=== PATIENT | female | born 1990 | race Hispanic/Latino ===

== ENCOUNTER 2022-11-04 16:25 | Emergency (ER) | payer OTHER, SELFPAY ==
[2022-11-04] MEDS ORDERED: TDAP (DIPHTH,PERTUSS(ACELL),TET VAC) 0.5 ML VIAL IMVAC ONE (16:34)
[2022-11-04] MEDS ORDERED: HYDROCODONE/APAP 7.5/325 MG TAB ONE (16:59)
[2022-11-04] MEDS ORDERED: LIDOCAINE 1% MPF 5 ML VIAL ONE (17:43)
[2022-11-04] MEDS ORDERED: BUPIVACAINE 0.5% PF 10 ML VIAL ONE (17:43)
--- NOTE | 2022-11-04 18:50 | ER ---
Nurse's Notes [facility] Name: Lanny Rankin Age: 32 yrs Sex: Female : 1990 Arrival Date: 11/04/2022 Time: 16:27 Bed 12 Private MD: Diagnosis: Laceration without foreign body of right middle finger without damage to nail-avulsion Presentation: 11/04 16:30 Chief complaint: EMS states: Toned out for finger laceration, pt sliced right middle jl7 finger while slicing vegetables. 16:30 Method Of Arrival: EMS: [facility] 7 16:30 Coronavirus screen: At this time, the client does not indicate any symptoms associated jl7 with coronavirus-19. Ebola Screen: No symptoms or risks identified at this time. Initial Sepsis Screen: Does the patient meet any 2 criteria? No. Patient's initial sepsis screen is negative. Does the patient have a suspected source of infection? No. Patient's initial sepsis screen is negative. Risk Assessment: Do you want to hurt yourself or someone else? Patient reports no desire to harm self or others. Onset of symptoms was November 04, 2022. 16:30 Acuity: COLLEEN 4 jl7 Triage Assessment: 17:05 General: Appears in no apparent distress. uncomfortable, Behavior is cooperative, jl7 anxious, crying. Pain: Complains of pain in right middle finger Pain currently is 10 out of 10 on a pain scale. Musculoskeletal: bleeding controlled. Injury Description: Avulsion sustained to right middle finger is partial was sustained 30-60 minutes ago. 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 - Social history:: Smoking status: Patient denies any tobacco usage or history of. Vital Signs: 16:30 BP 142 / 87; Pulse 106; Resp 17; Temp 97.6; Pulse Ox 99% ; Weight 104.33 kg; Height 5 jl7 ft. 5 in. (165.10 cm); Pain 10/10; 19:10 BP 127 / 76; Pulse 90; Resp 15; Temp 97.8; Pulse Ox 99% ; jl7 16:30 Body Mass Index 38.27 (104.33 kg, 165.10 cm) jl7 ED Course: 16:27 Patient arrived in ED. kb 16:27 Mar[facility]avala [facility]C [facility] kb 16:27 Homer Perera MD is Attending Physician. kb 16:36 Barrington Stone RN is Primary Nurse. jl7 17:05 Triage completed. jl7 17:05 Arm band placed on right wrist. jl7 19:11 Patient has correct armband on for positive identification. jl7 19:11 Assist provider with laceration repair on right middle finger that was 2.5 cm. or less jl7 using sutures. Set up tray. Performed by Marlene PINEDO Dressed with 4X4s, Patient tolerated well. Patient did not have IV access during this emergency room visit. Administered Medications: 16:40 Drug: Tetanus-Diphtheria Toxoid Adult 0.5 ml {Musical Instrument Mechanic: [facility] ([employer]). Exp: jl7 04/15/2023. Lot #: [id number]. } Route: IM; Site: left deltoid; 17:02 Drug: [place] (HYDROcodone-acetaminophen) (7.5 mg-325 mg) 1 tabs Route: PO; jl7 18:40 Drug: Lidocaine (1 %) 5 mg {Note: administered by ERP.} Route: Infiltration; jl7 18:40 Drug: Marcaine (bupivacaine) (0.5 %) 1 application {Note: administered by ERP.} Volume: jl7 10 ml; Route: Infiltration; Medication: 19:10 Vaccine Information Statement (VIS) provided today. Questions and/or concerns jl7 addressed. VIS edition date: May 07, 2021. Outcome: 18:50 Discharge ordered by . kb 19:11 Discharged to home ambulatory. jl7 19:11 Condition: stable 19:11 Discharge instructions given to patient, family, Instructed on discharge instructions, follow up and referral plans. Demonstrated understanding of instructions, follow-up care. 19:11 Patient left the ED. jl7 Signatures: Marlene Zavala FNP-C TOOL AND DIE MACHINIST-CkBarrington Turner RN RN jl7 Corrections: (The following items were deleted from the chart) 17:06 17:05 Home Meds: None; jl7 jl7
--- NOTE | 2022-11-04 18:50 | EDPHYS ---
Physician Documentation [facility] Name: Lanny Rankin Age: 32 yrs Sex: Female : 1990 Arrival Date: 11/04/2022 Time: 16:27 Bed 12 Private MD: ED Physician Homer Perera HPI: 11/04 20:11 This 32 yrs old Female presents to ER via EMS with complaints of Finger Injury.kb 20:11 The patient has a laceration related to: cooking, occurred at home, and there are no kb complicating factors. The laceration(s) is(are) located on the palmar aspect of proximal phalanx of right middle finger. Onset: The symptoms/episode began/occurred just prior to arrival. Associated signs and symptoms: Pertinent positives: heavy bleeding, Pertinent negatives: deformity, dizziness, loss of consciousness, numbness distal to injury, suspected foreign body. The patient has not experienced similar symptoms in the past. The patient has not recently seen a physician. Patient reports she was using a slicer to slice cucumbers and accidentally cut the tip of her right middle finger.. 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 - Social history:: Smoking status: Patient denies any tobacco usage or history of. ROS: 20:05 Constitutional: Negative for fever, chills, and weight loss. kb 20:05 Skin: Positive for avulsion, laceration(s), of the palmar aspect of distal phalanx of right middle finger. 20:05 All other systems are negative. Exam: 20:05 Constitutional: This is a well developed, well nourished patient who is awake, alert, kb and in no acute distress. Head/Face: Normocephalic, atraumatic. ENT: Moist Mucous membranes Cardiovascular: Regular rate and rhythm with a normal S1 and S2. No gallops, murmurs, or rubs. No pulse deficits. Respiratory: Respirations even and unlabored. No increased work of breathing. Talking in full sentences MS/ Extremity: Pulses equal, no cyanosis. Neurovascular intact. Full, normal range of motion. Neuro: Awake and alert, GCS 15, oriented to person, place, time, and situation. Moves all extremities. Normal gait. Psych: Awake, alert, with orientation to person, place and time. Behavior, mood, and affect are within normal limits. 20:05 Skin: injury, avulsion(s), A moderate sized of the palmar aspect of distal phalanx of right middle finger. Vital Signs: 16:30 BP 142 / 87; Pulse 106; Resp 17; Temp 97.6; Pulse Ox 99% ; Weight 104.33 kg; Height 5 jl7 ft. 5 in. (165.10 cm); Pain 10/10; 19:10 BP 127 / 76; Pulse 90; Resp 15; Temp 97.8; Pulse Ox 99% ; jl7 16:30 Body Mass Index 38.27 (104.33 kg, 165.10 cm) jl7 Procedures: 20:10 Nerve block: (digital) of palmar aspect of proximal phalanx of right middle finger kb Medication: Lidocaine 1% without epinephrine Marcaine 0.5%, Amount: 5 mls were injected, Effect: the patient has resolution of the pain, Set up for procedure. Performed by aMrlene PINEDO Patient tolerated well. MDM: 16:27 Patient medically screened. kb 20:05 Differential diagnosis: superficial laceration, vascular injury, Avulsion laceration. kb Data reviewed: vital signs, nurses notes. Counseling: I had a detailed discussion with the patient and/or guardian regarding: the historical points, exam findings, and any diagnostic results supporting the discharge/admit diagnosis, the need for outpatient follow up, a family practitioner, to return to the emergency department if symptoms worsen or persist or if there are any questions or concerns that arise at home. ED course: Surgicel and pressure applied to finger. Patient was given [place] for pain that did not improve pain. Digital block performed. Wound undressed, was still bleeding moderately i cleaned it with Hibiclens and inserted 1 [id number] stitch with 5-0 chromic to obtain hemostasis. Dressing applied.. 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 Exp: jl7 04/15/2023. Lot #: [id number]. } Route: IM; Site: left deltoid; 17:02 Drug: [place] (HYDROcodone-acetaminophen) (7.5 mg-325 mg) 1 tabs Route: PO; jl7 18:40 Drug: Lidocaine (1 %) 5 mg {Note: administered by ERP.} Route: Infiltration; jl7 18:40 Drug: Marcaine (bupivacaine) (0.5 %) 1 application {Note: administered by ERP.} Volume: jl7 10 ml; Route: Infiltration; Disposition: 11/05 07:16 Co-signature as Attending Physician, Homer Perera MD I reviewed the patient's care rn provided by the Advanced Practice Provider and agree with the diagnosis and treatment plan. Disposition Summary: 11/04/22 18:50 Discharge Ordered Location: [place] kb Condition: Stable kb Diagnosis - Laceration without foreign body of right middle finger without damage to nail - kb avulsion Followup: kb - With: Emergency Department - When: As needed - Reason: Worsening of condition Followup: kb - With: Private Physician - When: 2 - 3 days - Reason: Recheck today's complaints, Continuance of care, Re-evaluation by your physician Discharge Instructions: - Discharge Summary Sheet kb - Deep Skin Avulsion kb - Laceration Care, Adult, [id number] kb Forms: - Medication Reconciliation Form kb - Thank You Letter kb - Antibiotic Education kb - Prescription Opioid Use kb Signatures: Marlene Zavala, CLIENT DELIVERY MANAGER-C CLIENT DELIVERY MANAGER-Ckb Homer Perera MD MD rn Leal, Jahala, RN RN jl7 Corrections: (The following items were deleted from the chart) 11/04 17:06 17:05 Home Meds: None; jl7 jl7
[2022-11-04 19:20] VITALS: O2SAT 99
[2022-11-04 19:25] VITALS: BP 127/76; TEMP 97.8
== END 2022-11-04 19:11 | disposition home or self-care (01) ==
LOC: ER 16:25
PROC: 0HQFXZZ Repair Right Hand Skin, External Approach (ICD-10-PCS; principal; 2022-11-04)
DX: S61.312A Laceration without foreign body of right middle finger with damage to nail, initial encounter (principal); Z23 Encounter for immunization
CPT/HCPCS: 64450; 90471; 99283; J2001

== ENCOUNTER 2022-11-05 08:40 | Emergency (ER) | payer SELFPAY ==
--- NOTE | 2022-11-05 09:16 | ER ---
Nurse's Notes [facility] Name: Lanny Rankin Age: 32 yrs Sex: Female : 1990 Arrival Date: 11/05/2022 Time: 08:41 Bed 8 Private MD: Diagnosis: abrasion of the right 3rd phalanx Presentation: 11/05 08:55 Ebola Screen: Patient denies travel to an Ebola-affected area in the 21 days before ll1 illness onset. Risk Assessment: Do you want to hurt yourself or someone else? Patient reports no desire to harm self or others. Onset of symptoms was November 05, 2022. 08:55 Acuity: COLLEEN 4 ll1 08:55 Method Of Arrival: Ambulatory 1 09:18 Chief complaint: Patient states: R hand suture site bleeding. Here for recheck. ll1 Coronavirus screen: Client denies travel out of the [place] in the last 14 days. At this time, the client does not indicate any symptoms associated with coronavirus-19. Initial Sepsis Screen: Does the patient meet any 2 criteria? No. Patient's initial sepsis screen is negative. Does the patient have a suspected source of infection? Yes: Skin breakdown/wound. Historical: - PMHx: 08:54 depressive disorder; Anxiety; ll1 - Immunization history:: Adult Immunizations up to date. - Social history:: Smoking status: Patient denies any tobacco usage or history of. Screenin:18 Abuse screen: Denies threats or abuse. Nutritional screening: No deficits noted. ll1 Tuberculosis screening: No symptoms or risk factors identified. Assessment: 09:05 General: Appears in no apparent distress. Behavior is calm, cooperative, appropriate ll1 for age. Pain: Complains of pain in right hand and palmar aspect of distal phalanx of right middle finger Quality of pain is described as aching. Derm: Wound noted palmar aspect of distal phalanx of right middle finger Wound is s/p 1 suture last night Reports pain. Musculoskeletal: Circulation, motion, and sensation intact. Capillary refill < 3 seconds. Vital Signs: 09:25 BP 148 / 63; Pulse 79; Resp 16; Temp 98.0; Pulse Ox 100% on R/A; iw ED Course: 08:41 Patient arrived in ED. as 08:42 Francis Quintana PA is PHCP. [facility] 08:42 Homer Perera MD is Attending Physician. [facility] 08:50 Garrett Hurtado, RN is Primary Nurse. 1 08:50 Arm band placed on Patient placed in an exam room, on a stretcher. ll1 08:55 Triage completed. ll1 09:06 Wound care: to laceration located on palmar aspect of distal phalanx of right middle ll1 finger was cleaned with with saline, dressed with surgicel applied, wrapped with folded 4x4. Secured with coban wrap, Patient tolerated well. 09:25 No provider procedures requiring assistance completed. Patient did not have IV access iw during this emergency room visit. Administered Medications: No medications were administered Medication: 09:25 VIS not applicable for this client. iw Outcome: 09:15 Discharge ordered by . [facility] 09:24 Discharged to home ambulatory. iw 09:24 Condition: good 09:24 Discharge instructions given to patient, family, Instructed on discharge instructions, follow up and referral plans. wound care. 09:24 No charge visit due to suture removal. 09:26 Patient left the ED. iw Signatures: Francis Quintana PA PA Celia Everett as Mariam Rangel RN RN Garrett Hurtado, RN RN [facility] Corrections: (The following items were deleted from the chart) 09:21 09:06 Wound care: to laceration located on palmar aspect of distal phalanx of right ll1 middle finger was cleaned with with saline, dressed with surgicel applied, wrapped with folded 4x4. Secured with coban wrap, 1
--- NOTE | 2022-11-05 09:16 | EDPHYS ---
Physician Documentation [facility] Name: Lanny Rankin Age: 32 yrs Sex: Female : 1990 Arrival Date: 11/05/2022 Time: 08:41 Bed 8 Private MD: ED Physician Homer Perera HPI: 11/05 08:54 This 32 yrs old Female presents to ER via Ambulatory with complaints of Suture jmm Recheck. 08:54 The affected area is on the palmar aspect of distal phalanx of right middle finger. jmm This is a 32 year old female with history of depression that presents the ED with complaints of ongoing bleeding to an injury to her right 3rd finger. Repaired yesterday. Patient was given a tetanus immunization. . Historical: - PMHx: 08:54 depressive disorder; Anxiety; ll1 - Immunization history:: Adult Immunizations up to date. - Social history:: Smoking status: Patient denies any tobacco usage or history of. ROS: 08:54 Constitutional: Negative for fever, chills, and weight loss, Cardiovascular: Negative jmm for chest pain, palpitations, and edema, Respiratory: Negative for shortness of breath, cough, wheezing, and pleuritic chest pain. 08:54 Skin: Positive for bleeding. 08:54 All other systems are negative. Exam: 08:54 Constitutional: This is a well developed, well nourished patient who is awake, alert, jmm and in no acute distress. Head/Face: atraumatic. Eyes: EOMI, no conjunctival erythema appreciated ENT: Moist Mucus Membranes Neck: Trachea midline, Supple Chest/axilla: Normal chest wall appearance and motion. Cardiovascular: Regular rate and rhythm. No edema appreciated Respiratory: Normal respirations, no respiratory distress appreciated Abdomen/GI: Non distended Back: Normal ROM 08:54 Skin: abrasion notd to the right 3rd distal phalanx without active bleeding. . 08:54 Neuro: Orientation: is normal, Mentation: is normal, Memory: is normal. 08:54 Psych: Behavior/mood is pleasant, cooperative. Vital Signs: 09:25 BP 148 / 63; Pulse 79; Resp 16; Temp 98.0; Pulse Ox 100% on R/A; iw MDM: 08:54 Patient medically screened. [facility] 09:13 Data reviewed: vital signs, nurses notes. Historians other than the Patient: alexis Spouse/Significant Other: significant other. Counseling: I had a detailed discussion with the patient and/or guardian regarding: the historical points, exam findings, and any diagnostic results supporting the discharge/admit diagnosis, the need for outpatient follow up, to return to the emergency department if symptoms worsen or persist or if there are any questions or concerns that arise at home. ED course: wound was rewraped using surgicele. patient was otherwise given strict return precautions. patient understood and agrees with the plan of care. . 11/05 08:57 Order name: Wound Care; Complete Time: 09:07 haider Administered Medications: No medications were administered Disposition: 10:17 Co-signature as Attending Physician, Homer Perera MD I reviewed the patient's care rn provided by the Advanced Practice Provider and agree with the diagnosis and treatment plan. Disposition Summary: 11/05/22 09:15 Discharge Ordered Location: Home [facility] Condition: Stable jm Diagnosis - abrasion of the right 3rd phalanx [facility] Followup: jm - With: Private Physician - When: 2 - 3 days - Reason: Recheck today's complaints, Continuance of care, Re-evaluation by your physician Discharge Instructions: - Discharge Summary Sheet jm - Wound Care, Adult jm Forms: - Medication Reconciliation Form [facility] - Thank You Letter [facility] - Antibiotic Education [facility] - Prescription Opioid Use [facility] Signatures: Francis Quintana PA PA jmm Nieto, Roman, MD MD rn Garrett Hurtado RN RN ll1
[2022-11-05 09:30] VITALS: BP 148/63; TEMP 98; O2SAT 100
== END 2022-11-05 09:26 | disposition home or self-care (01) ==
LOC: ER 08:40
DX: S60.412A Abrasion of right middle finger, initial encounter (principal)

== ENCOUNTER 2024-09-16 15:37 | Emergency (ER) | payer OTHER ==
--- OUTSIDE RECORDS SUMMARY | 2024-09-16 15:39 | XMS REPORT | Continuity of Care Document ---
Author Name Unknown Address [address] [place] [address] [employer] Address [address] [place] [address] [address] [place] [address] Care Team Providers Care Rn Faculty Name Role Phone [email or web address] Attending Clinician Unavaila ble [email or web address] Admitting Clinician Unavaila ble Encounters Start Date/Time End Date/Time Encounter Type Admission Type Attending Clinicians Care Facility Care Department Encounter ID Source 2023-08-02 00:00:00 2023-08-02 00:00:00 Outpatient [email or web address] [id number] [facility]
[2024-09-16] MEDS ORDERED: ONDANSETRON 4 MG/2 ML VIAL ONE (16:11)
[2024-09-16] MEDS ORDERED: BISACODYL 10 MG RECTAL SUPP ONE (16:11)
[2024-09-16] MEDS ORDERED: NA CHLORIDE 0.9% 1,000 ML ONE (16:11)
[2024-09-16] MEDS ORDERED: LACTULOSE 20 GM/30 ML UCUP ONE (16:12)
[2024-09-16 16:24] LABS: Absolute Basophils 0.1 K/uL (0-0.5); Absolute Lymphocytes (CBC) 1.4 K/uL (0.7-4.9); Absolute Monocytes 0.7 K/uL (0.1-1.3); Basophils % 0.4 % (0-1.3); Eosinophils % 0.1 % (0-4.4); Hematocrit 41.6 % (36.0-45.0); Hemoglobin 14.1 g/dL (12.0-15.0); Lymphocytes % 10.5 % (15.3-44.8); MCH 29.1 pg (27.0-35.0); MCHC 33.9 g/dL (32.0-36.0); MCV 85.9 fL (80-100); MPV 7.2 fL (7.6-11.3); Platelets 318 thou/uL (152-406); RBC Red Blood Cell Count 4.84 M/uL (3.86-4.86); Red Cell Distribution Width 13.6 % (12.1-15.2)
[2024-09-16 16:36] LABS: Specific Gravity 1.005 (1.005-1.030); Urine Bilirubin NEGATIVE (Negative); Urine Blood Negative (Negative); Urine Clarity Clear (Clear); Urine Color Colorless (Yellow); Urine Glucose NEGATIVE (Negative); Urine Ketones TRACE (Negative); Urine Microscopic Reflex YN NO UMIC; Urine Nitrite NEGATIVE (Negative); Urine Protein NEGATIVE (Negative); Urine Urobilinogen Normal (Normal)
[2024-09-16 16:37] LABS: Specific Gravity 1.005 (1.005-1.030)
[2024-09-16 16:39] LABS: Albumin 4.3 g/dL (3.4-5.0); Bilirubin Total 0.4 mg/dL (0.2-1.0); Globulin 4.1 g/dL (2.3-3.5); Protein, Total 8.4 g/dL (6.4-8.2)
[2024-09-16] MEDS ORDERED: NA CHLORIDE 0.9% 500 ML ONE (18:28)
--- NOTE | 2024-09-16 18:30 | RAD REPORT ---
EXAMINATION: CT Abdomen Pelvis W Contrast CLINICAL INDICATION: Female, 33 years old. Abd pain;Constipation TECHNIQUE: CT abdomen and pelvis was performed, after the administration of IV contrast, as per [facility] protocol. Axial, sagittal and coronal reconstructions were obtained. One or more of the following dose reduction techniques were used: Automated exposure control, adjustment of the mA and k V according to patient size, and iterative reconstruction. Unless otherwise specified, incidental findings do not require dedicated imaging follow-up. COMPARISON: No prior exam. FINDINGS: LOWER CHEST: The visualized lung bases are clear. LIVER: Normal in size and contour. No focal lesion. BILIARY SYSTEM: No suspicious abnormalities. SPLEEN: Normal size. No focal lesion. PANCREAS: No mass, ductal dilation, or vaughn-pancreatic fluid. ADRENALS: Normal; no mass. KIDNEYS: Normal size and contour. No hydronephrosis. URINARY BLADDER: Unremarkable. GASTROINTESTINAL TRACT: No evidence of free air, significant intra-abdominal free fluid, bowel obstru ction or abscess. No significant colonic stool burden APPENDIX: Normal appendix. LYMPH NODES: No lymphadenopathy. MUSCULOSKELETAL: No acute or suspicious osseous abnormality. ADDITIONAL FINDINGS: Retroverted uterus. IMPRESSION: No acute or concerning abnormalities seen in the abdomen or pelvis.
--- NOTE | 2024-09-16 18:34 | EDPHYS ---
Physician Documentation [facility] Name: Lanny Rankin Age: 33 yrs Sex: Female : 1990 Arrival Date: 09/16/2024 Time: 15:37 Bed 26 Private MD: ED Physician Mateus Piedra HPI: 09/16 17:42 This 33 yrs old Female presents to ER via Ambulatory with complaints of chikis Nausea, Constipation. 17:42 The patient presents to the emergency department with nausea, that is moderate, chikis abdominal pain, of the right upper quadrant, left upper quadrant and left lower quadrant. Onset: The symptoms/episode began/occurred 3 day(s) ago. Possible causes: GB, CONSTIPATION. The symptoms are aggravated by movement, The symptoms are alleviated by nothing. Associated signs and symptoms: Pertinent positives: abdominal pain, constipation, nausea. Severity of symptoms: At their worst the symptoms were moderate in the emergency department the symptoms are unchanged. The patient has experienced similar episodes in the past, multiple times. Historical: - Allergies: 15:51 No Known Allergies; cm10 - PMHx: 15:51 Anxiety; depressive disorder; cm10 - Immunization history:: Adult Immunizations up to date. - Infectious Disease History:: Denies. - Social history:: Smoking status: Patient denies any tobacco usage or history of. ROS: 17:45 Constitutional: Negative for fever, chills, and weight loss, Eyes: Negative for injury, chikis pain, redness, and discharge, ENT: Negative for injury, pain, and discharge, Neck: Negative for injury, pain, and swelling, Cardiovascular: Negative for chest pain, palpitations, and edema, Respiratory: Negative for shortness of breath, cough, wheezing, and pleuritic chest pain, Back: Negative for injury and pain, : Negative for injury, bleeding, discharge, and swelling, MS/Extremity: Negative for injury and deformity, Skin: Negative for injury, rash, and discoloration, Neuro: Negative for headache, weakness, numbness, tingling, and seizure, Psych: Negative for depression, anxiety, suicide ideation, homicidal ideation, and hallucinations, Allergy/Immunology: Negative for hives, rash, and allergies, Endocrine: Negative for neck swelling, polydipsia, polyuria, polyphagia, and marked weight changes, Hematologic/Lymphatic: Negative for swollen nodes, abnormal bleeding, and unusual bruising, 17:45 Abdomen/GI: Positive for abdominal pain, nausea, constipation, abdominal cramps, of the right upper quadrant, left upper quadrant and right lower quadrant, Exam: 17:45 Constitutional: This is a well developed, well nourished patient who is awake, alert, chikis and in no acute distress. Head/Face: Normocephalic, atraumatic. Eyes: Pupils equal round and reactive to light, extra-ocular motions intact. Lids and lashes normal. Conjunctiva and sclera are non-icteric and not injected. Cornea within normal limits. Periorbital areas with no swelling, redness, or edema. ENT: Nares patent. No nasal discharge, no septal abnormalities noted. Tympanic membranes are normal and external auditory canals are clear. Oropharynx with no redness, swelling, or masses, exudates, or evidence of obstruction, uvula midline. Mucous membranes moist. Neck: Trachea midline, no thyromegaly or masses palpated, and no cervical lymphadenopathy. Supple, full range of motion without nuchal rigidity, or vertebral point tenderness. No Meningismus. Chest/axilla: Normal chest wall appearance and motion. Nontender with no deformity. No lesions are appreciated. Respiratory: Lungs have equal breath sounds bilaterally, clear to auscultation and percussion. No rales, rhonchi or wheezes noted. No increased work of breathing, no retractions or nasal flaring. Back: No spinal tenderness. No costovertebral tenderness. Full range of motion. Skin: Warm, dry with normal turgor. Normal color with no rashes, no lesions, and no evidence of cellulitis. MS/ Extremity: Pulses equal, no cyanosis. Neurovascular intact. Full, normal range of motion., bilateral aka Neuro: Awake and alert, GCS 15, oriented to person, place, time, and situation. Cranial nerves II-XII grossly intact. Motor strength 5/5 in all extremities. Sensory grossly intact. Cerebellar exam normal. Normal gait. Psych: Awake, alert, with orientation to person, place and time. Behavior, mood, and affect are within normal limits. 17:45 Cardiovascular: Rate: tachycardic, Rhythm: regular, Pulses: Pulses are 4+ in bilateral radial, brachial, femoral, popliteal, posterior tibial and and dorsalis pedis arteries.. Heart sounds: normal, Edema: is not appreciated, JVD: is not appreciated, 17:45 Abdomen/GI: Inspection: distension, that is mild, Bowel sounds: normal, Palpation: mild abdominal tenderness, moderate abdominal tenderness, in the right upper quadrant, left upper quadrant and left lower quadrant, Liver: tenderness, that is mild, Hernia: not appreciated, Vital Signs: 15:49 BP 155 / 110; Pulse 137; Resp 19; Temp 96.9(TE); Pulse Ox 100% on R/A; Weight 88.9 kg; cm10 Height 5 ft. 5 in. ; Pain 6/10; 18:17 BP 142 / 89; Pulse 89; Resp 16; Pulse Ox 100% on R/A; jb4 15:49 Body Mass Index 32.62 (88.90 kg, 165.1 cm) cm10 15:49 Pain Scale: Adult cm10 MDM: 15:40 Medical Screening Exam initiated chikis 17:48 Differential diagnosis: Nonspecific abd pain, gastritis, cholecystitis, pancreatitis, chikis appendicitis, diverticulitis, viral gastroenteritis, gastroenteritis, appendicitis, bowel obstruction, cholecystitis, Cholelithiasis, diverticulitis, gastritis, non-specific abd pain, pancreatitis. Data reviewed: vital signs, nurses notes, lab test result(s), EKG, radiologic studies, CT scan, ultrasound. Consideration of Admission/Observation Escalation of care including admission/observation considered. I considered the following discharge prescriptions or medication management in the emergency department Medications were administered in the Emergency Department. See MAR. Independent interpretation of the following test(s) in the Emergency Department CT Scan: My interpretation is CT ABD /PELVIS. Test considered but Not performed: MRI: NO MRCP. Historians other than the Patient: Spouse/Significant Other: WELL INFORMED. Care significantly affected by the following chronic conditions: Obesity, ANXIETY, DEPRESSION. Counseling: I had a detailed discussion with the patient and/or guardian regarding the historical points, exam findings, and any diagnostic results supporting the discharge/admit diagnosis, the presence of at least one elevated blood pressure reading (>120/80) during this emergency department visit, radiology results. 09/16 15:41 Order name: CBC with Diff; Complete Time: 17:40 [facility] 09/16 15:41 Order name: CMP; Complete Time: 17:40 [facility] 09/16 15:41 Order name: Lipase; Complete Time: 17:40 [facility] 09/16 15:41 Order name: Test, Urine; Complete Time: 17:40 [facility] 09/16 15:41 Order name: Urinalysis w/ reflexes; Complete Time: 17:40 [facility] 09/16 15:41 Order name: CT Abd/Pelvis - PO and IV Contrast; Complete Time: 18:32 [facility] 09/16 17:40 Order name: US Abdomen Limited; Complete Time: 19:26 [facility] 09/16 15:41 Order name: IV Saline Lock; Complete Time: 16:31 [facility] 09/16 15:41 Order name: Labs collected and sent; Complete Time: 16:31 [facility] Administered Medications: 16:15 Drug: Dulcolax AZ Suppository 10 mg AZ once Route: AZ; jb4 18:32 Follow up: Response: No adverse reaction; Marked relief of symptoms jb4 16:30 Drug: Lactulose PO 30 grams 45 ml PO once Volume: 45 ml; Route: PO; jb4 18:32 Follow up: Response: No adverse reaction; Marked relief of symptoms jb4 16:31 Drug: Ondansetron IVP 4 mg IVP once; over 2 minutes Route: IVP; Site: right antecubital;jb4 16:31 Drug: NS 0.9% IV 1000 ml IV at 1 bolus Per protocol; to be given as a bolus over 60 jb4 minutes Route: IV; Rate: 1 bolus; Site: right antecubital; 18:31 Not Given (Other Intervention Used): ns 0.9% 1000 ml IV at 1000 ml once; to be given as jb4 a bolus over 60 minutes 18:34 Drug: NS 0.9% IV 500 ml IV at bolus once; to be given as a bolus over 30 minutes Route: jb4 IV; Rate: bolus; Site: right antecubital; 19:02 Not Given (Physician Discretion): ns 0.9% 1000 ml IV at 125 ml once jb4 Disposition Summary: 09/16/24 18:34 Discharge Ordered Notes: Location: Home chikis Problem: new chikis Symptoms: have improved chikis Condition: Stable chikis Diagnosis - Nausea chikis - Constipation chikis - Abdominal pain, Generalized chikis - Elevated white blood cell count chikis Followup: chikis - With: Private Physician - When: 2 - 3 days - Reason: Recheck today's complaints, Continuance of care, Re-evaluation by your physician Followup: chikis - With: Rena Barclay MD - When: 2 - 3 days - Reason: Recheck today's complaints, Re-evaluation by your physician Discharge Instructions: - Discharge Summary Sheet chikis - Abdominal Pain, Adult chikis - Constipation, Adult chikis - Nausea, Adult chikis - Constipation, Adult, Isap-[id number] chikis - Abdominal Pain, Adult, Dlva-kc-[id number] chikis Forms: - Medication Reconciliation Form chikis - Antibiotic Education chikis - Prescription Opioid Use chikis - Patient Portal Instructions [facility] - Leadership Thank You Letter [facility] Prescriptions: - Dulcolax (bisacodyl) 10 mg Rectal suppository - insert 1 suppository RECTAL route daily as needed for constipation; 10 chikis suppository; Refills: 0, Product Selection Permitted - ondansetron 4 mg Oral Tablet,disintegrating - take 1 tablet ORAL route every 6-8 hours for 5 days; 20 tablet; Refills: 0, [facility] Product Selection Permitted - Cipro 250 mg Oral tablet - take 1 tablet ORAL route every 12 hours; 10 tablet; Refills: 0, Product [facility] Selection Permitted - dicyclomine 20 mg Oral tablet - take 1 tablet ORAL route 4 times per day; 28 tablet; Refills: 0, Product [facility] Selection Permitted Signatures: Dispatcher [employer] Mateus Long MD MD cha Bryson, James, RN RN jb4 Patricia Berry RN RN cm10
--- NOTE | 2024-09-16 18:34 | ER ---
Nurse's Notes [facility] Name: Lanny Rankin Age: 33 yrs Sex: Female : 1990 Arrival Date: 09/16/2024 Time: 15:37 Bed 26 Private MD: Diagnosis: Nausea;Constipation;Abdominal pain, Generalized;Elevated white blood cell count Presentation: 09/16 15:49 Chief complaint: Patient states: CONSTIPATION ONSET TODAY. PT STATES THAT SHE WAS SEEN cm10 AT [place] AND WAS TOLD THAT SHE NEEDED TO COME TO THE HOSPITAL "TO GET SOME RELIEF". Coronavirus screen: Client denies travel out of the [place] in the last 14 days. Ebola Screen: Patient denies travel to an Ebola-affected area in the 21 days before illness onset. No symptoms or risks identified at this time. Initial Sepsis Screen: Does the patient meet any 2 criteria? HR > 90 bpm. Does the patient have a suspected source of infection? No. Patient's initial sepsis screen is negative. Risk Assessment: Do you want to hurt yourself or someone else? Patient reports no desire to harm self or others. Onset of symptoms was September 16, 2024. 15:49 Method Of Arrival: Ambulatory cm10 15:49 Acuity: COLLEEN 3 cm10 Triage Assessment: 15:51 General: Appears uncomfortable, Behavior is anxious, crying. Neuro: No deficits noted. cm10 Level of Consciousness is awake, alert, obeys commands, Oriented to person, place, time, situation, Appropriate for age. Historical: - Allergies: 15:51 No Known Allergies; cm10 - PMHx: 15:51 Anxiety; depressive disorder; cm10 - Immunization history:: Adult Immunizations up to date. - Infectious Disease History:: Denies. - Social history:: Smoking status: Patient denies any tobacco usage or history of. Screenin:30 [facility] ED Fall Risk Assessment (Adult) History of falling in the last 3 months, jb4 including since admission No falls in past 3 months (0 pts) Confusion or Disorientation No (0 pts) Intoxicated or Sedated No (0 pts) Impaired Gait No (0 pts) Mobility Assist Device Used No (0 pt) Altered Elimination No (0 pt) Score/Fall Risk Level 0 - 2 = Low Risk Oriented to surroundings, Maintained a safe environment. Abuse screen: Denies threats or abuse. Nutritional screening: No deficits noted. Tuberculosis screening: No symptoms or risk factors identified. Assessment: 16:32 Reassessment: Patient appears in no apparent distress at this time. Patient and/or jb4 family updated on plan of care and expected duration. Pain level reassessed. Patient is alert, oriented x 3, equal unlabored respirations, skin warm/dry/pink. 18:17 Reassessment: Patient appears in no apparent distress at this time. Patient and/or jb4 family updated on plan of care and expected duration. Pain level reassessed. Patient is alert, oriented x 3, equal unlabored respirations, skin warm/dry/pink. 19:30 Reassessment: Patient appears in no apparent distress at this time. Patient and/or jb4 family updated on plan of care and expected duration. Pain level reassessed. Patient is alert, oriented x 3, equal unlabored respirations, skin warm/dry/pink. Vital Signs: 15:49 BP 155 / 110; Pulse 137; Resp 19; Temp 96.9(TE); Pulse Ox 100% on R/A; Weight 88.9 kg; cm10 Height 5 ft. 5 in. ; Pain 6/10; 18:17 BP 142 / 89; Pulse 89; Resp 16; Pulse Ox 100% on R/A; jb4 15:49 Body Mass Index 32.62 (88.90 kg, 165.1 cm) cm10 15:49 Pain Scale: Adult cm10 ED Course: 15:39 Patient arrived in ED. im 15:40 Mateus Piedra MD is Attending Physician. chikis 15:51 Triage completed. cm10 15:51 Arm band placed on right wrist. Patient placed in an exam room, on a stretcher. cm10 16:22 Initial lab(s) drawn, by al, sent to lab. Inserted saline lock: 20 gauge in right kb4 antecubital area, using aseptic technique. Blood collected. Flushed with 10 mL NS. 16:22 Urine collected: clean catch specimen, clear. kb4 16:31 Urinalysis w/ reflexes Sent. jb4 16:31 Test, Urine Sent. jb4 16:31 CMP Sent. jb4 18:04 CT Abd/Pelvis - PO and IV Contrast In Process Unspecified. EDMS 18:30 US Abdomen Limited In Process Unspecified. EDMS 18:33 Meah, Nizam, MD is Referral Physician. [facility] 19:30 Patient has correct armband on for positive identification. Bed in low position. Call jb4 light in reach. Side rails up X 1. Provided Education on: discharge instructions.. 19:30 No provider procedures requiring assistance completed. IV discontinued, intact, jb4 bleeding controlled, No redness/swelling at site. Pressure dressing applied. Administered Medications: 16:15 Drug: Dulcolax IL Suppository 10 mg IL once Route: IL; jb4 18:32 Follow up: Response: No adverse reaction; Marked relief of symptoms jb4 16:30 Drug: Lactulose PO 30 grams 45 ml PO once Volume: 45 ml; Route: PO; jb4 18:32 Follow up: Response: No adverse reaction; Marked relief of symptoms jb4 16:31 Drug: Ondansetron IVP 4 mg IVP once; over 2 minutes Route: IVP; Site: right antecubital;jb4 16:31 Drug: NS 0.9% IV 1000 ml IV at 1 bolus Per protocol; to be given as a bolus over 60 jb4 minutes Route: IV; Rate: 1 bolus; Site: right antecubital; 18:31 Not Given (Other Intervention Used): ns 0.9% 1000 ml IV at 1000 ml once; to be given as jb4 a bolus over 60 minutes 18:34 Drug: NS 0.9% IV 500 ml IV at bolus once; to be given as a bolus over 30 minutes Route: jb4 IV; Rate: bolus; Site: right antecubital; 19:02 Not Given (Physician Discretion): ns 0.9% 1000 ml IV at 125 ml once jb4 Medication: 19:30 VIS not applicable for this client. jb4 Outcome: 18:34 Discharge ordered by . [facility] 19:30 Discharged to home ambulatory, jb4 19:30 Condition: stable 19:30 Discharge instructions given to patient, Instructed on discharge instructions, follow up and referral plans. medication usage, Demonstrated understanding of instructions, follow-up care, medications, Prescriptions given X 4, 19:31 Patient left the ED. jb4 Signatures: Dispatcher [employer] EDMS Mateus Piedra MD MD cha Bryson, James, RN RN jb4 She Malave Clarissa, RN RN cm10 Susan Dickerson 4
--- NOTE | 2024-09-16 18:50 | RAD REPORT ---
EXAMINATION: US Abdomen Exam Limited CLINICAL HISTORY: [facility] MAIN Y ABD PAIN Bed Name: 26 COMPARISON: None. TECHNIQUE: Limited upper abdominal grayscale and color flow sonographic images. FINDINGS: Gallbladder: Normal. No evidence of gallstones or positive sonographic Leos sign. Bile ducts: No intrahepatic or extrahepatic biliary dilatation. Common bile duct measures 4 mm. Liver: Visualized portions of the liver demonstrate normal echogenicity with no suspicious findings. Fluid: No ascites. IMPRESSION: No abnormalities on right upper quadrant ultrasound.
[2024-09-16 20:11] VITALS: O2SAT 100
[2024-09-16 20:13] VITALS: BP 155/110; TEMP 96.9
== END 2024-09-16 19:31 | disposition home or self-care (01) ==
LOC: ER 15:37
DX: K59.00 Constipation, unspecified (principal); R10.84 Generalized abdominal pain; D72.829 Elevated white blood cell count, unspecified
CPT/HCPCS: 85025; 36415; 81025; 81003; 83690; 80053; 74177; 76705; 96374; 99284; Q9967; J2405; J7040; J7030

== ENCOUNTER 2024-10-27 01:37 | Emergency (ER) | payer OTHER ==
--- OUTSIDE RECORDS SUMMARY | 2024-10-27 01:39 | XMS REPORT | Continuity of Care Document ---
Author Name Unknown Address [address] [place] [address] [employer] Address [address] [place] [address] Care Team Providers Care Safety Tech Name Role Phone [email or web address] Attending Clinician Unavaila ble [email or web address] Admitting Clinician Unavaila ble Encounters Start Date/Time End Date/Time Encounter Type Admission Type Attending Clinicians Care Facility Care Department Encounter ID Source 2023-08-02 00:00:00 2023-08-02 00:00:00 Outpatient [email or web address] [facility] [id number] [facility]
[2024-10-27] MEDS ORDERED: LABETALOL 20 MG/4ML SYRINGE IV ONE (02:03)
[2024-10-27] MEDS ORDERED: NA CHLORIDE 0.9% 1,000 ML ONE (02:03)
[2024-10-27 02:25] LABS: Absolute Basophils 0.1 K/uL (0-0.5); Absolute Eosinophils 0.2 K/uL (0-0.5); Absolute Lymphocytes (CBC) 4.5 K/uL (0.7-4.9); Absolute Monocytes 0.6 K/uL (0.1-1.3); Absolute Neutrophil 4.6 K/uL (1.8-8.0); Basophils % 0.7 % (0-1.3); Eosinophils % 1.5 % (0-4.4); Hematocrit 38.4 % (36.0-45.0); Hemoglobin 13.4 g/dL (12.0-15.0); Lymphocytes % 45.1 % (15.3-44.8); MCH 29.2 pg (27.0-35.0); MCHC 34.7 g/dL (32.0-36.0); MPV 7.9 fL (7.6-11.3); Monocytes % 6.3 % (3.3-12.3); Neutrophils % 46.4 % (41.7-73.7); Platelets 310 thou/uL (152-406); RBC Red Blood Cell Count 4.58 M/uL (3.86-4.86); Red Cell Distribution Width 13.3 % (12.1-15.2)
[2024-10-27 02:39] LABS: D-Dimer 0.878 FEUug/mL (0-0.500); PT Prothrombin Time 11.6 SECONDS (9.4-12.5); Protime INR 1.11
[2024-10-27 02:50] LABS: ALT/SGPT 24 U/L (13-56); AST/SGOT 20 U/L (15-37); Albumin 3.7 g/dL (3.4-5.0); Albumin/Globulin Ratio 0.9 (1.1-1.8); Alkaline Phosphatase 95 U/L (45-117); Anion Gap 12.1 mEq/L (5.0-15.0); BUN Blood Urea Nitrogen 12 mg/dL (7-18); Bicarbonate 24 mEq/L (21-32); Bilirubin Total 0.2 mg/dL (0.2-1.0); Globulin 3.9 g/dL (2.3-3.5); Glomerular Filtration Rate 88 ml/min (=/>90); Glucose Level 135 mg/dL (74-106); Magnesium 2.1 mg/dL (1.6-2.4); NT PRO-BNP 31 pg/mL (<125); Potassium 3.1 mEq/L (3.5-5.1); Protein, Total 7.6 g/dL (6.4-8.2); Sodium Level 139 mEq/L (136-145)
[2024-10-27 02:57] LABS: Bilirubin Direct < 0.2 mg/dL (0-0.2); Troponin High Sensitivity < 3.0 pg/mL (<58.9)
[2024-10-27 03:00] LABS: T3 Free 2.73 pg/mL (2.18-3.98)
[2024-10-27 03:01] LABS: Thyroid Stimulating Hormone 3.81 uIU/mL (0.358-3.740)
[2024-10-27 03:12] LABS: Specific Gravity 1.013 (1.005-1.030); Sqamous Epithelial <5 /HPF (None Seen); Urine Bacteria None Seen /HPF (<20); Urine Bilirubin NEGATIVE (Negative); Urine Blood Negative (Negative); Urine Clarity Turbid (Clear); Urine Color Colorless (Yellow); Urine Culture Reflex Order NOT NEEDED; Urine Glucose NEGATIVE (Negative); Urine Ketones NEGATIVE (Negative); Urine Micro Reflex YN NO BILL MICROSCOPIC; Urine Nitrite NEGATIVE (Negative); Urine Protein NEGATIVE (Negative); Urine RBC <5 /HPF (None Seen); Urine Urobilinogen Normal (Normal); Urine WBC <5 /HPF (<5)
[2024-10-27 03:13] LABS: Specific Gravity 1.013 (1.005-1.030)
[2024-10-27 03:28] LABS: Barbiturates NEGATIVE (NEGATIVE); Benzodiazepines NEGATIVE (NEGATIVE); Cocaine NEGATIVE (NEGATIVE); METHAMPHETAM NEGATIVE (NEGATIVE); Methadone NEGATIVE (NEGATIVE); Opiates NEGATIVE (NEGATIVE); Phencyclidine NEGATIVE (NEGATIVE); THC Cannibis NEGATIVE (NEGATIVE)
[2024-10-27] MEDS ORDERED: DIAZEPAM 10 MG/2 ML INJ SYRINGE ONE (03:37)
--- NOTE | 2024-10-27 03:48 | RAD REPORT ---
EXAM: XR Chest, 1 View CLINICAL HISTORY: The patient is 34 years old and is Female; PALPITATIONS TECHNIQUE: Frontal view of the chest. COMPARISON: No relevant prior studies available. FINDINGS: Lungs: Unremarkable. No consolidation. Pleural space: Unremarkable. No pneumothorax. Heart: Unremarkable. Mediastinum: Unremarkable. Normal mediastinal contour. Bones/joints: No acute findings. IMPRESSION: No acute findings in the chest. Electronically signed by: Roberto Carlos Pastor MD 10/27/2024 03:11 AM [facility] 8 Due to temporary technical issues with the PACS/[employer] reporting system, reports are being jordi d by the in-house radiologist without review as a courtesy to ensure prompt reporting the interpreting radiologist is fully responsible for the content of the report. Transcribed Date/Time: 10/27/2024 3:47 AM
--- NOTE | 2024-10-27 06:08 | RAD REPORT ---
EXAM: Extrem Venous W Compress Alexei US Bilateral Lower Extremity Venous Duplex Doppler HISTORY: Palpitation. Rule Out DVT. COMPARISON: None TECHNIQUE: Grayscale, color Doppler, duplex Doppler, spectral Doppler images and analysis with compre ssion and augmentation of right and left lower extremity veins. FINDINGS: Right and Left common femoral, greater saphenous, femoral, deep (profunda) femoral, popliteal veins u nremarkable without evidence of clot. IMPRESSION: No sonographic evidence of right or left lower extremity DVT. Electronically signed by: Ranjith John MD 10/27/2024 06:04 AM [facility] Due to temporary technical issues with the PACS/[employer] reporting system, reports are being sign ed by the in-house radiologist without review as a courtesy to ensure prompt reporting the interpreting rad iologist is fully responsible for the content of the report. Transcribed Date/Time: 10/27/2024 6:08 AM
--- NOTE | 2024-10-27 06:14 | EDPHYS ---
Physician Documentation [facility] Name: Lanny Rankin Age: 34 yrs Sex: Female : 1990 Arrival Date: 10/27/2024 Time: 01:37 Bed 3 Private MD: ED Physician Mateus Piedra HPI: 10/27 01:55 This 34 yrs old Female presents to ER via EMS with complaints of Anxiety. cp 01:55 The patient presents with a history of heart racing. cp 01:55 Context: The symptoms occur during sleep, awoke patient. Onset: The symptoms/episode cp began/occurred tonight. Duration: The patient or guardian reports a single episode, that is still ongoing. 01:55 Associated signs and symptoms: Pertinent positives: anterior neck pain with radiation cp to right arm. 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 - Infectious Disease History:: Denies. - Social history:: Smoking status: Patient denies any tobacco usage or history of. ROS: 01:58 Constitutional: Negative for body aches, chills, fever, poor PO intake, cp 01:58 ENT: Negative for drainage from ear(s), ear pain, sore throat, difficulty swallowing, cp difficulty handling secretions, 01:58 Cardiovascular: Positive for palpitations, Negative for edema, 01:58 Respiratory: Negative for cough, pleurisy, wheezing, 01:58 Abdomen/GI: Negative for abdominal pain, vomiting, diarrhea, constipation, 01:58 Eyes: Negative for injury, pain, redness, and discharge, cp 01:58 Neuro: Negative for altered mental status, syncope, cp 01:58 All other systems are negative, Exam: :55 ECG was reviewed by the Attending Physician. cp 02:00 Constitutional: The patient appears in no acute distress, alert, awake, cp non-diaphoretic, non-toxic, well developed, well nourished, anxious, uncomfortable, 02:00 Head/Face: Normocephalic, atraumatic. cp 02:00 Eyes: Periorbital structures: appear normal, Pupils: equal, round, and reactive to cp light and accomodation, Extraocular movements: intact throughout, Conjunctiva: normal, no exudate, no injection, Sclera: no appreciated abnormality, Lids and lashes: appear normal, bilaterally, 02:00 ENT: External ear(s): are unremarkable, Nose: is normal, Mouth: Lips: moist, Oral mucosa: moist, Posterior pharynx: Airway: no evidence of obstruction, patent, 02:00 Neck: ROM/movement: is normal, is supple, without pain, no range of motions limitations, no meningismus, no nuchal rigidity, 02:00 Chest/axilla: Inspection: normal, 02:00 Cardiovascular: Rate: tachycardic, Rhythm: regular, Edema: is not appreciated, JVD: is not appreciated, 02:00 Respiratory: the patient does not display signs of respiratory distress, Respirations: normal, no use of accessory muscles, no retractions, labored breathing, is not present, Breath sounds: are clear throughout, no decreased breath sounds, no stridor, no wheezing, 02:00 Abdomen/GI: Inspection: abdomen appears normal, Palpation: abdomen is soft and non-tender, in all quadrants, 02:00 Back: CVA tenderness, is absent, 02:00 Skin: cellulitis, is not appreciated, no rash present. 02:00 Neuro: Orientation: to person, place \T\ time. Mentation: is normal, Cerebellar function: is grossly normal, Motor: moves all fours, strength is normal, Sensation: no obvious gross deficits, 02:16 ECG was reviewed by the Attending Physician. Vital Signs: 01:43 BP 166 / 103; Pulse 134; Resp 20 S; Temp 98.1(O); Pulse Ox 100% on R/A; Weight 83.91 ha1 kg; Height 5 ft. 5 in. ; 02:28 BP 157 / 101; Pulse 88; Resp 18 S; Pulse Ox 100% on R/A; ha1 03:00 BP 139 / 89; Pulse 92; Resp 18; Pulse Ox 100% on R/A; al5 03:30 BP 141 / 87; Pulse 101; Resp 19 S; Pulse Ox 100% on R/A; ha1 04:00 BP 121 / 78; Pulse 94; Resp 17; Pulse Ox 98% on R/A; al5 04:30 BP 119 / 77; Pulse 96; Resp 17; Pulse Ox 98% on R/A; al5 05:00 BP 137 / 88; Pulse 88; Resp 19; Pulse Ox 99% on R/A; al5 05:30 BP 130 / 90; Pulse 91; Resp 17; Pulse Ox 97% on R/A; al5 05:53 BP 130 / 90; Pulse 89; Resp 18; Pulse Ox 100% on R/A; ha1 01:43 Body Mass Index 30.79 (83.91 kg, 165.1 cm) ha1 MDM: 01:49 Medical Screening Exam initiated cp 06:13 Data reviewed: vital signs, nurses notes, lab test result(s), EKG, radiologic studies, cp CT scan, plain films, ultrasound, I have discussed the patient's presentation/case with the attending Emergency Department Physician; and as a result, I will discharge patient. 06:13 Differential diagnosis: arrythmia, dehydration, stress disorder, electrolyte cp abnormality. I considered the following discharge prescriptions or medication management in the emergency department Medications were administered in the Emergency Department. See MAR. Independent interpretation of the following test(s) in the Emergency Department EKG: See my EKG interpretation above. Care significantly affected by the following chronic conditions: Hypertension. Counseling: I had a detailed discussion with the patient and/or guardian regarding the historical points, exam findings, and any diagnostic results supporting the discharge/admit diagnosis, lab results, radiology results, the need for outpatient follow up, a communications professional, to return to the emergency department if symptoms worsen or persist or if there are any questions or concerns that arise at home. Response to treatment: the patient's symptoms have markedly improved after treatment, and as a result, I will discharge patient. 10/27 01:55 Order name: Basic Metabolic Panel; Complete Time: 03:06 10/27 03:06 Interpretation: Normal except: K 3.1; GLUC 135; GFR 88. cp 10/27 01:55 Order name: CBC with Diff; Complete Time: 03:06 10/27 03:06 Interpretation: Normal except: LYM% 45.1. cp 10/27 01:55 Order name: D-Dimer; Complete Time: 03:06 10/27 01:55 Order name: LFT's; Complete Time: 03:06 10/27 03:07 Interpretation: Normal except: IBILI, CALC 0.0; GLOB 3.9; A/G 0.9. cp 10/27 01:55 Order name: Magnesium; Complete Time: 03:06 cp 10/27 01:55 Order name: NT PRO-BNP; Complete Time: 03:06 cp 10/27 01:55 Order name: PT-INR; Complete Time: 03:06 cp 10/27 01:55 Order name: Troponin HS; Complete Time: 03:06 cp 10/27 01:55 Order name: Urinalysis W/Microscopic; Complete Time: 03:21 cp 10/27 01:55 Order name: UDS; Complete Time: 03:29 cp 10/27 03:29 Interpretation: Reviewed. cp 10/27 01:55 Order name: Test, Urine; Complete Time: 03:21 cp 10/27 02:07 Order name: TSH; Complete Time: 03:06 cp 10/27 02:07 Order name: T3 Free; Complete Time: 03:06 cp 10/27 02:07 Order name: T4 Free; Complete Time: 03:06 cp 10/27 01:55 Order name: XRAY Chest (1 view) cp 10/27 03:08 Order name: CT Chest For PE Angio cp 10/27 03:08 Order name: US Extremity Venous W Compression Alexei cp 10/27 01:55 Order name: EKG; Complete Time: 01:56 cp 10/27 01:55 Order name: Cardiac monitoring; Complete Time: 01:58 cp 10/27 01:55 Order name: EKG - Nurse/Tech; Complete Time: 01:58 cp 10/27 01:55 Order name: IV Saline Lock; Complete Time: 01:58 cp 10/27 01:55 Order name: Labs collected and sent; Complete Time: 01:58 cp 10/27 01:55 Order name: O2 Per Protocol; Complete Time: 01:58 cp 10/27 01:55 Order name: O2 Sat Monitoring; Complete Time: 01:58 cp EC:55 Rate is 129 beats/min. Rhythm is regular. DC interval is normal. QRS interval is cp normal. QT interval is normal. T waves are Inverted in lead aVR. Interpreted by me. Reviewed by me. 02:16 Rate is 106 beats/min. Rhythm is regular. DC interval is normal. QRS interval is cp normal. QT interval is normal. T waves are Inverted in lead aVR. Interpreted by me. Reviewed by me. Administered Medications: 01:55 CANCELLED (Physician Discretion): ativan1 mg IVP once cp 02:11 Drug: Labetalol IV 20 mg IV at calculated rate once over 2 mins Route: IV; Rate: ha1 calculated rate; Infused Over: 2 mins; Site: right antecubital; 02:40 Follow up: Response: No adverse reaction; Marked relief of symptoms; Cardiac rhythm ha1 changed; IV Status: Completed infusion 02:12 Drug: NS 0.9% IV 1000 ml IV at 1000 ml once; to be given as a bolus over 60 minutes ha1 Route: IV; Rate: 1000 ml; Site: right antecubital; 05:54 Follow up: Response: No adverse reaction; IV Status: Completed infusion; IV Intake: ha1 1000ml 03:45 Drug: Diazepam IVP 5 mg IVP once Route: IVP; Site: right antecubital; ha1 04:00 Follow up: Response: No adverse reaction; Marked relief of symptoms; Anxiety decreased ha1 06:20 Drug: Potassium PO Effervescent Tablet 50 mEq PO once; dissolve in 4 ounces of water or ha1 juice Route: PO; 06:32 Follow up: Response: No adverse reaction ha1 Disposition Summary: 10/27/24 06:14 Discharge Ordered Notes: Location: Home cp Problem: new cp Symptoms: have improved cp Condition: Stable cp Diagnosis - Palpitations cp - Hypertensive heart disease without heart failure cp - Cervicalgia cp Followup: cp - With: Steven Celaya MD - When: 5 - 6 days - Reason: Recheck today's complaints Discharge Instructions: - Discharge Summary Sheet cp - Hypertension, Adult cp - Musculoskeletal Pain cp - Palpitations cp - Aspirin and Your Heart cp - Neck Exercises cp - Form - Blood Pressure Record Sheet cp - Ambulatory Cardiac Monitoring cp - How to Take Your Blood Pressure cp Forms: - Medication Reconciliation Form cp - Antibiotic Education cp - Prescription Opioid Use cp - Patient Portal Instructions cp - Leadership Thank You Letter cp Prescriptions: - Metoprolol Tartrate 25 mg Oral tablet - take 1 tablet ORAL route 2 times per day with a meal; 30 tablet; Refills: 0, cp Product Selection Permitted - Cyclobenzaprine 10 mg Oral Tablet - take 1 tablet ORAL route every 8 hours As needed; 30 tablet; Refills: 0, cp Product Selection Permitted Addendum: 10/29/2024 14:18 Co-signature as Attending Physician, Mateus Piedra MD I agree with the assessment and c bui plan of care. Signatures: Dispatcher [employer] Mateus Long MD MD cha Page, Corey, PA PA cp Melissa Robles, RN RN ha1 Corrections: (The following items were deleted from the chart) 10/27 01:55 01:55 Ativan IVP 1 mg IVP once ordered. cp cp 01:56 01:55 BASIC METABOLIC PANEL+C.LAB.BRZ ordered. EDMS EDMS 01:56 01:55 CBC+H.LAB.BRZ ordered. EDMS EDMS 01:56 01:55 D-DIMER+COAG.LAB.BRZ ordered. EDMS EDMS 01:56 01:55 HEPATIC FUNCTION+C.LAB.BRZ ordered. EDMS EDMS 01:56 01:55 MAGNESIUM+C.LAB.BRZ ordered. EDMS EDMS 01:56 01:55 PROBNP+C.LAB.BRZ ordered. EDMS EDMS 01:56 01:55 PROTIME (+INR)+COAG.LAB.BRZ ordered. EDMS EDMS 01:56 01:55 Troponin High Sensitivity+C.LAB.BRZ ordered. EDMS EDMS 01:56 01:55 Urinalysis W/Microscopic+U.LAB.BRZ ordered. EDMS EDMS 01:56 01:56 URINE DRUG SCREEN+UC.LAB.BRZ ordered. EDMS EDMS 01:56 01:56 Test, Urine+UC.LAB.BRZ ordered. EDMS EDMS 03:09 03:09 Chest For PE Angio+CT.RAD.BRZ ordered. EDMS EDMS 03:09 03:09 Extrem Venous W Compression Alexei+US.RAD.BRZ ordered. EDMS EDMS
--- NOTE | 2024-10-27 06:14 | ER ---
Nurse's Notes [facility] Name: Lanny Rankin Age: 34 yrs Sex: Female : 1990 Arrival Date: 10/27/2024 Time: 01:37 Bed 3 Private MD: Diagnosis: Palpitations;Hypertensive heart disease without heart failure;Cervicalgia Presentation: 10/27 01:43 Chief complaint: Patient states: SUDDEN ONSET OF NECK PAIN THAT RADIATES TO THE RIGHT ha1 ARM. CHEST PALPITATIONS. 01:43 Coronavirus screen: Client denies travel out of the [place] in the last 14 days. Ebola ha1 Screen: No symptoms or risks identified at this time. Initial Sepsis Screen: Does the patient meet any 2 criteria? Yes Does the patient have a suspected source of infection? No. Patient's initial sepsis screen is negative. Risk Assessment: Do you want to hurt yourself or someone else? Patient reports no desire to harm self or others. Onset of symptoms was October 27, 2024. 01:43 Method Of Arrival: EMS: [facility] ha1 01:43 Acuity: COLLEEN 3 ha1 Triage Assessment: 01:43 General: Appears uncomfortable, Behavior is cooperative, anxious. Pain: Complains of ha1 pain in neck Pain radiates to right arm Pain currently is 8 out of 10 on a pain scale. Quality of pain is described as aching. Neuro: Level of Consciousness is awake, alert, obeys commands, Oriented to person, place, time, situation. Cardiovascular: Reports palpitations, Heart tones S1 S2 present Capillary refill < 3 seconds Patient's skin is warm and dry. Rhythm is sinus tachycardia. Respiratory: Airway is patent Respiratory effort is even, unlabored, Respiratory pattern is regular, symmetrical. GI: No signs and/or symptoms were reported involving the gastrointestinal system. : No signs and/or symptoms were reported regarding the genitourinary system. Derm: Skin is pink, warm \T\ dry. Musculoskeletal: Circulation, motion, and sensation intact. Range of motion: intact in all extremities. 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 - Infectious Disease History:: Denies. - Social history:: Smoking status: Patient denies any tobacco usage or history of. Screenin:43 [facility] ED Fall Risk Assessment (Adult) History of falling in the last 3 months, ha1 including since admission No falls in past 3 months (0 pts) Confusion or Disorientation No (0 pts) Intoxicated or Sedated No (0 pts) Impaired Gait No (0 pts) Mobility Assist Device Used No (0 pt) Altered Elimination No (0 pt) Score/Fall Risk Level 0 - 2 = Low Risk Oriented to surroundings, Maintained a safe environment, Educated pt \T\ family on fall prevention, incl call for assistance when getting out of bed, Hourly rounding (assess needs \T\ fall precautionary measures) done. Abuse screen: Denies threats or abuse. Denies injuries from another. Nutritional screening: No deficits noted. Tuberculosis screening: No symptoms or risk factors identified. Assessment: 01:58 General: SEE TRIAGE ASSESSMENT . ha1 02:28 Reassessment: Patient and/or family updated on plan of care and expected duration. Pain ha1 level reassessed. Patient is alert, oriented x 3, equal unlabored respirations, skin warm/dry/pink. Patient states feeling better. Patient states symptoms have improved. 03:30 Reassessment: Patient and/or family updated on plan of care and expected duration. Pain ha1 level reassessed. Patient is alert, oriented x 3, equal unlabored respirations, skin warm/dry/pink. 04:30 Reassessment: Patient and/or family updated on plan of care and expected duration. Pain ha1 level reassessed. Patient is alert, oriented x 3, equal unlabored respirations, skin warm/dry/pink. Patient denies pain at this time. Patient states feeling better. Patient states symptoms have improved. 05:30 Reassessment: Patient and/or family updated on plan of care and expected duration. Pain ha1 level reassessed. Patient is alert, oriented x 3, equal unlabored respirations, skin warm/dry/pink. Patient denies pain at this time. Patient states feeling better. Patient states symptoms have improved. 06:32 Reassessment: Patient and/or family updated on plan of care and expected duration. Pain ha1 level reassessed. Patient is alert, oriented x 3, equal unlabored respirations, skin warm/dry/pink. Patient denies pain at this time. Patient states feeling better. Patient states symptoms have improved. Vital Signs: 01:43 BP 166 / 103; Pulse 134; Resp 20 S; Temp 98.1(O); Pulse Ox 100% on R/A; Weight 83.91 ha1 kg; Height 5 ft. 5 in. ; 02:28 BP 157 / 101; Pulse 88; Resp 18 S; Pulse Ox 100% on R/A; ha1 03:00 BP 139 / 89; Pulse 92; Resp 18; Pulse Ox 100% on R/A; al5 03:30 BP 141 / 87; Pulse 101; Resp 19 S; Pulse Ox 100% on R/A; ha1 04:00 BP 121 / 78; Pulse 94; Resp 17; Pulse Ox 98% on R/A; al5 04:30 BP 119 / 77; Pulse 96; Resp 17; Pulse Ox 98% on R/A; al5 05:00 BP 137 / 88; Pulse 88; Resp 19; Pulse Ox 99% on R/A; al5 05:30 BP 130 / 90; Pulse 91; Resp 17; Pulse Ox 97% on R/A; al5 05:53 BP 130 / 90; Pulse 89; Resp 18; Pulse Ox 100% on R/A; ha1 01:43 Body Mass Index 30.79 (83.91 kg, 165.1 cm) ha1 ED Course: 01:42 Patient arrived in ED. [id number] 01:43 Patient has correct armband on for positive identification. Placed in gown. Bed in low ha1 position. Call light in reach. Side rails up X 1. Adult w/ patient. 01:43 Provided Education on: ways to reduce anxiety . ha1 01:43 Client placed on continuous cardiac and pulse oximetry monitoring. NIBP monitoring ha1 applied. stock supervisor on. Door closed. Noise minimized. Warm blanket given. Pillow given. 01:43 Arm band placed on right wrist. ha1 01:49 Mateus Field PA is PHCP. cp 01:49 Mateus Piedra MD is Attending Physician. cp 01:55 Triage completed. ha1 01:58 Inserted saline lock: 20 gauge in right antecubital area, using aseptic technique. ha1 Blood collected. Flushed with 10 mL NS. 01:58 Basic Metabolic Panel Sent. ha1 01:58 CBC with Diff Sent. ha1 01:58 D-Dimer Sent. ha1 01:59 LFT's Sent. ha1 01:59 Magnesium Sent. ha1 01:59 NT PRO-BNP Sent. ha1 01:59 PT-INR Sent. ha1 01:59 Troponin HS Sent. ha1 02:15 EKG done, by ED staff, reviewed by Mateus BILLINGS. sa1 02:26 XRAY Chest (1 view) In Process Unspecified. EDMS 03:03 Urinalysis W/Microscopic Sent. ha1 03:03 UDS Sent. ha1 03:03 Test, Urine Sent. ha1 04:02 US Extremity Venous W Compression Alexei In Process Unspecified. EDMS 04:03 CT Chest For PE Angio In Process Unspecified. EDMS 04:17 Melissa Robles, JANETH is Primary Nurse. ha1 06:14 Steven Celaya MD is Referral Physician. cp 06:32 No provider procedures requiring assistance completed. IV discontinued, intact, ha1 bleeding controlled, No redness/swelling at site. Pressure dressing applied. Administered Medications: 01:55 CANCELLED (Physician Discretion): ativan1 mg IVP once cp 02:11 Drug: Labetalol IV 20 mg IV at calculated rate once over 2 mins Route: IV; Rate: ha1 calculated rate; Infused Over: 2 mins; Site: right antecubital; 02:40 Follow up: Response: No adverse reaction; Marked relief of symptoms; Cardiac rhythm ha1 changed; IV Status: Completed infusion 02:12 Drug: NS 0.9% IV 1000 ml IV at 1000 ml once; to be given as a bolus over 60 minutes ha1 Route: IV; Rate: 1000 ml; Site: right antecubital; 05:54 Follow up: Response: No adverse reaction; IV Status: Completed infusion; IV Intake: ha1 1000ml 03:45 Drug: Diazepam IVP 5 mg IVP once Route: IVP; Site: right antecubital; ha1 04:00 Follow up: Response: No adverse reaction; Marked relief of symptoms; Anxiety decreased ha1 06:20 Drug: Potassium PO Effervescent Tablet 50 mEq PO once; dissolve in 4 ounces of water or ha1 juice Route: PO; 06:32 Follow up: Response: No adverse reaction ha1 Medication: 06:33 VIS not applicable for this client. ha1 Intake: 05:54 IV: 1000ml; Total: 1000ml. ha1 Outcome: 06:14 Discharge ordered by . cp 06:32 Discharged to home ambulatory, with family, ha1 06:32 Condition: stable 06:32 Discharge instructions given to patient, Instructed on discharge instructions, follow up and referral plans. medication usage, Demonstrated understanding of instructions, follow-up care, medications, Prescriptions given X 2, 06:34 Patient left the ED. ha1 Signatures: Dispatcher [employer] EDMS Mateus Field PA PA cp Jeffries, Jennifer [id number] Melissa Robles RN RN ha1 Natividad Gary RN RN al5 Sultan Juan 1
--- NOTE | 2024-10-27 06:20 | RAD REPORT ---
EXAM: Chest For Pe Angio CTA Chest With Contrast HISTORY: Palpitation COMPARISON: Chest 1 View AP 10/27/2024 at 2:21 AM TECHNIQUE: Chest CTA axial images acquired with IV contrast. Coronal and sagittal CTA MIPs and MPRs c reated. Exam performed according to departmental dose-optimization program which includes automated exposure control, adjustment of mA and/or kV according to patient size, and/or use of iterative recon struction technique. FINDINGS: Heart size normal. No pericardial effusion. Thoracic aorta unremarkable without evidence of dissection, aneurysm, or atherosclerotic plaque. No evidence of pulmonary embolism. Central tracheobronchial tree unremarkable. No consolidation, lung mass, or significant pulmonary edema. No pleural effusion or pneumothorax. Mild mid thoracic spine degenerative change. IMPRESSION: Unremarkable CTA chest with contrast Electronically signed by: Ranjith John MD 10/27/2024 06:08 AM [facility] Due to temporary technical issues with the [employer] reporting system, reports are being jordi d by the in-house radiologist without review as a courtesy to ensure prompt reporting the interpreting radiologist is fully responsible for the content of the report. Transcribed Date/Time: 10/27/2024 6:20 AM
[2024-10-27] MEDS ORDERED: POTASSIUM 25 MEQ EFFERV TAB ONE (06:25)
[2024-10-27 07:35] VITALS: TEMP 98.1
[2024-10-27 07:48] VITALS: BP 130/90
[2024-10-27 07:49] VITALS: O2SAT 100
--- NOTE | 2024-10-30 12:41 | EKG ---
Test Date: 2024-10-27 Test Time: 01:49:33 Storm Chaser: MEASUREMENT RESULTS: Intervals: Rate: 129 MO: 138 QRSD: 82 QT: 318 QTc: 465 [place]: P: 62 MO: 138 QRS: 40 T: 56 INTERPRETIVE STATEMENTS: Sinus tachycardia, PVC Otherwise normal ECG No previous ECG available for comparison Electronically Signed On 10-30-24 12:34:54 HEAD ANIMAL TRAINER by Fernandez Arias
--- NOTE | 2024-10-30 12:41 | EKG ---
Test Date: 2024-10-27 Test Time: 02:11:24 Environmental Economist: MEASUREMENT RESULTS: Intervals: Rate: 106 VA: 148 QRSD: 82 QT: 328 QTc: 435 [place]: P: 65 VA: 148 QRS: 46 T: 53 INTERPRETIVE STATEMENTS: Sinus tachycardia Otherwise normal ECG Compared to ECG 10/27/2024 01:49:33 No significant changes Electronically Signed On 10-30-24 12:34:40 TILE LAYER DRAINAGE by Fernandez Arias
== END 2024-10-27 06:34 | disposition home or self-care (01) ==
LOC: ER 01:37
DX: I11.9 Hypertensive heart disease without heart failure (principal); M54.2 Cervicalgia; F41.9 Anxiety disorder, unspecified; I10 Essential (primary) hypertension
CPT/HCPCS: 93005; 85025; 81001; 80048; 36415; 83735; 81025; 85610; 85379; 80076; 84443; 84484; 84481; 84439; 83880; 80307; 71275; 71045; 93970; Q9967; J3360; J7030; 96361; 96365; 96375; 99285